=== PATIENT | male | born 1965 | race Caucasian/White ===

== ENCOUNTER 2017-11-29 21:25 | Emergency (ER) | payer MEDICARE, MEDICAID ==
[~2017-11-29] VITALS: Ht 170.2 cm; Wt 56.7 kg
[2017-11-29] MEDS ORDERED: CARVEDILOL 3.125 MG (21:49)
[2017-11-29] MEDS ORDERED: PREDNISONE 5 MG (21:49)
[2017-11-29] MEDS ORDERED: ATORVASTATIN CALCIUM 80 MG TAB (21:49)
[2017-11-29] MEDS ORDERED: CLOPIDOGREL 75 MG TABS (21:49)
[2017-11-29] MEDS ORDERED: PANTOPRAZOLE SODIUM 40 MG TBEC (21:49)
--- NOTE | 2017-11-29 21:52 | NUR ---
Patient discharged to home in stable conditon. Written and verbal after care instructions given. Patient verbalizes understanding of instructions. Pt has [employer] to take him home. All belongings with pt. VSS. No acute distress noted.
[2017-11-29 21:53] VITALS: BP 144/71
== END 2017-11-29 21:53 | disposition home or self-care (01) ==
LOC: ER 21:26
DX: Z00.00 Encounter for general adult medical examination without abnormal findings (principal); I10 Essential (primary) hypertension; K21.9 Gastro-esophageal reflux disease without esophagitis; Z88.8 Allergy status to other drugs, medicaments and biological substances; Z91.013 Allergy to seafood; Z79.01 Long term (current) use of anticoagulants; Z79.899 Other long term (current) drug therapy
CPT/HCPCS: A4663

== ENCOUNTER 2019-03-27 15:57 | Emergency (ER) | payer MEDICARE, MEDICAID ==
[~2019-03-27] VITALS: Ht 170.2 cm; Wt 72.6 kg
[~2019-03-27 15:57] MED LIST: ATORVASTATIN CALCIUM 80 MG TAB; CARVEDILOL 3.125 MG; CLOPIDOGREL 75 MG TABS; PANTOPRAZOLE SODIUM 40 MG TBEC; PREDNISONE 5 MG
[2019-03-27] MEDS ORDERED: LEVE500T9 PO (16:18)
[2019-03-27] MEDS ORDERED: IV NORMAL SALINE 500 ML BAG IV ONE (16:30)
[2019-03-27 16:44] LABS: BASOPHILS # (AUTO) 0.1 K/uL (0.0-8.0); BASOPHILS % (AUTO) 0.9 % (0.0-2.0); EOSINOPHILS % (AUTO) 0.2 % (0.0-7.0); HEMATOCRIT 40.3 % (36.7-47.1); HEMOGLOBIN 12.6 g/dL (12.5-16.3); LYMPHOCYTES # (AUTO) 0.7 K/uL (20.0-40.0); LYMPHOCYTES % (AUTO) 7.3 % (20.5-51.5); MEAN CORPUSCULAR HGB CONC 31 g/dL (32.5-36.3); MEAN CORPUSCULAR VOLUME 92.5 fL (73.0-96.2); MONOCYTES # (AUTO) 0.7 K/uL (2.0-10.0); MONOCYTES % (AUTO) 7.7 % (0.0-11.0); NEUTROPHILS # (AUTO) 7.6 K/uL (1.8-8.9); NEUTROPHILS % (AUTO) 83.9 % (38.5-71.5); PLATELET COUNT (AUTO) 191 K/uL (152-348); RED BLOOD CELL COUNT(AUTO) 4.36 MIL/uL (4.06-5.63)
[2019-03-27 16:55] LABS: CARBON DIOXIDE 24 mmol/L (21-32); CHLORIDE 105 mmol/L (98-107); CREATININE 1.4 mg/dL (0.6-1.3); GLUCOSE 119 mg/dL (74-106); POTASSIUM 4.7 mmol/L (3.5-5.1); UREA NITROGEN, BLOOD 19 mg/dL (7-18)
[2019-03-27 17:01] LABS: ACETAMINOPHEN 10.4 ug/mL (10-30); ALANINE AMINOTRANSFERASE 21 U/L (16-63); ALKALINE PHOSPHATASE 90 U/L (50-136); ASPARTATE AMINOTRANSFERASE 25 U/L (15-37); BILIRUBIN,DIRECT 0.3 mg/dL (0.0-0.2); BILIRUBIN,TOTAL 1.1 mg/dL (0.2-1.0); TOTAL PROTEIN, SERUM 6.7 g/dL (6.4-8.2)
[2019-03-27 17:16] LABS: ETHANOL < 3 MG/DL (0-0)
--- NOTE | 2019-03-27 17:45 | NUR ---
DR CABALLERO MADE PATIENT AWARE OF TEST RESULTS.
--- NOTE | 2019-03-27 17:51 | NUR ---
Patient discharged to home in stable conditon. Written and verbal after care instructions given. Patient verbalizes understanding of instructions.
[2019-03-27 17:53] VITALS: BP 137/75
[2019-03-27 17:57] LABS: THYROID STIMULATING HORMONE 1.217 mIU/mL (0.358-3.740)
--- NOTE | 2019-03-27 17:57 | NUR ---
PATIENT WAS TAKEN HOME BY CAREGIVER.
== END 2019-03-27 17:57 | disposition home or self-care (01) ==
LOC: ER 16:04
DX: G40.89 Other seizures (principal); E11.9 Type 2 diabetes mellitus without complications; F32.9 Major depressive disorder, single episode, unspecified; E78.5 Hyperlipidemia, unspecified; Z88.8 Allergy status to other drugs, medicaments and biological substances; Z91.013 Allergy to seafood; Z79.01 Long term (current) use of anticoagulants; Z79.899 Other long term (current) drug therapy
CPT/HCPCS: 36415; 70450; 71045; 80048; 80076; 82140; 83605; 84443; 84484; 85025; 85730; 87040; 87400; 93005; 99284; G0480 ×2; G0481; 70030-TC; A4663; J7030; J7040